=== PATIENT | male | born 1960 | race Caucasian/White ===

== ENCOUNTER 2017-10-16 20:01 | Emergency (ER) | payer OTHER, MEDICAID ==
[~2017-10-16] VITALS: Ht 182.9 cm; Wt 81.6 kg
[2017-10-16 20:01] VITALS: BP_SYST 144
[2017-10-16 21:00] VITALS: BP_SYST 138
== END 2017-10-16 21:00 | disposition home or self-care (01) ==
LOC: SED 20:01
DX: H95.42 Postprocedural hemorrhage of ear and mastoid process following other procedure (principal); Z85.828 Personal history of other malignant neoplasm of skin
CPT/HCPCS: 99283